=== PATIENT | female | born 1990 | race Two or more races ===

== ENCOUNTER 2017-02-12 15:28 | Emergency (ER) | payer OTHER ==
[~2017-02-12] VITALS: Ht 157.5 cm; Wt 106.9 kg
[2017-02-12] MEDS ORDERED: SODIUM CHLORIDE FLUSH 10ML SYR IVF ONE (16:00)
[2017-02-12] MEDS ORDERED: SODIUM CHLORIDE 0.9% 1,000ML IVBOLUS ONE (16:00)
[2017-02-12 16:21] LABS: BLOOD UREA NITROGEN 8 mg/dL (7-18)
[2017-02-12 16:28] LABS: HEMATOCRIT 36.2 % (34.6-47.8); HEMOGLOBIN 12.3 g/dL (11.7-16.4); WHITE BLOOD COUNT 9.5 x10^3/uL (3.4-10)
[2017-02-12] MEDS ORDERED: ONDANSETRON 2MG/ML, 2ML IVPush ONE (16:30)
[2017-02-12] MEDS ORDERED: MECLIZINE CHEWABLE 25 MG TAB PO ONE (16:30)
[2017-02-12] MEDS ORDERED: ONDANSETRON 2MG/ML, 2ML ONE (16:32)
[2017-02-12] MEDS ORDERED: MECLIZINE CHEWABLE 25 MG TAB ONE (16:32)
[2017-02-12 18:26] VITALS: BP 138/84
[2017-02-12 18:48] LABS: ASPARTATE AMINO TRANSFERASE 14 U/L (15-37)
== END 2017-02-12 18:58 | disposition left against medical advice (07) ==
LOC: ED 18:52
DX: O26.893 Other specified pregnancy related conditions, third trimester (principal); R42 Dizziness and giddiness; R19.7 Diarrhea, unspecified; Z88.1 Allergy status to other antibiotic agents; Z3A.31 31 weeks gestation of pregnancy
CPT/HCPCS: 36415; 76805; 80048; 80076; 81001; 82040; 82247; 82248; 84702; 84703; 85025; 86901; 87086; 93005; 96361; 96374; 99285; J2405; J7030